=== PATIENT | male | born 1990 | race Caucasian/White ===

== ENCOUNTER 2022-04-19 05:52 | Emergency (ER) | payer OTHER, SELFPAY ==
[2022-04-19 05:59] VITALS: BP 136/82; PULSE 110; RESP 18; TEMP 37.7; O2SAT 100; BMI 20.2
--- NOTE | 2022-04-19 06:21 | ED_ITS ---
HPI - Psych General Chief Complaint: Psychiatric Symptoms Stated Complaint: crisis Time Seen by Provider: 04/19/22 06:16 Source: patient and EMS Mode of arrival: EMS Limitations: other (Psychotic, paranoia) History of Present Illness HPI Narrative: Patient comes to the emergency room via EMS. Patient was discharged approximately 2 weeks ago from an inpatient facility in [place]. According to the patient's mother, patient has history of bipolar disorder. The mother told EMS that the patient is very paranoid, patient thinks that his apartment is going to get bombarded. Patient has been pulling wires from the apartment, concerned about being spyed. Also, patient is afraid of the kitchen and won't go in there. Patient states that he is here for anxiety, patient giving any significant history. Patient came on a Section 12 Related Data Home Medications Medication Instructions Recorded Confirmed quetiapine 100 mg tablet 100 mg PO BEDTIME 04/19/22 04/19/22 quetiapine 25 mg tablet 12.5 mg PO BID 04/19/22 04/19/22 quetiapine 25 mg tablet 25 mg PO BID 04/19/22 04/19/22 Allergies Allergy/AdvReac Type Severity Reaction Status Date / Time gluten Allergy Intermediate Diarrhea Verified 04/19/22 06:07 lactose Allergy Intermediate Diarrhea Verified 04/19/22 06:08 ciprofloxacin AdvReac Intermediate Rash Verified 04/19/22 06:06 Sulfa (Sulfonamide AdvReac Intermediate Shortness Verified 04/19/22 06:07 Antibiotics) of Breath Review of Systems Review of Systems: Yes Unobtainable due to mental condition PMFSH Past Medical History Medical History (Updated 04/19/22 @ 06:25 by Nimisha Lilly MD) Bipolar disorder Physical Exam Vital Signs: Vital Signs: Last Vital Signs Temp 100 F 04/19/22 05:59 Pulse 110 H 04/19/22 05:59 Resp 18 04/19/22 05:59 BP 136/82 04/19/22 05:59 Pulse Ox 100 04/19/22 05:59 O2 Del Method 04/19/22 05:59 BMI result Body Mass Index 20.2 Const: Other: Appearance: Alert. Oriented X3. Agitated Eyes: Pupils equal, myadriasis bilateraly, round and reactive to light. ENT: Pharynx normal. Neck: Normal inspection. Neck supple. No lymph nodes noted. No crepitus CVS: Normal heart rate and rhythm. Pulses normal. Normal S1 and S2 Respiratory: No respiratory distress. Breath sounds normal. No Wheezing. No rales Abdomen: Soft and nontender. No rigidity. No distention. Skin: Skin warm and dry. Normal skin color. Normal skin turgor. Extremities: No lower extremity edema. No Lacerations. No Rash Neuro: Oriented X 3. No motor deficit. No sensory deficit. Moving all extremities. No slurred speech. CN 2 through 12 grossly intact Psych: Anxious, at times a bit explosive but easily redirectable Course Course Course Narrative: Patient is unable to give much history. Patient is a bit explosive. 2 mg of Ativan p.o. were given. Patient will very likely need to be treated in an inpatient setting. [facility] network consult pending All of his labs are pending. Physician observation started at 06:25 Sign-out given to Dr. Carrero Discharge Plan Discharge Clinical Impression: Paranoid behavior Patient Disposition: Still a Patient Prescriptions: No Action quetiapine 25 mg Tablet 12.5 mg PO BID quetiapine 100 mg Tablet 100 mg PO BEDTIME quetiapine 25 mg Tablet 25 mg PO BID
[2022-04-19] MEDS: LORazepam 1 MG TABLET 2 MG PO (06:37)
[2022-04-19 06:53] LABS: COVID-19 Test Negative (Negative)
[2022-04-19 06:56] LABS: Amphetamine Screen Urine Not Detected (Not Detect); Barbiturates, Urine Not Detected (Not Detect); Benzodiazepines Screen Urine Not Detected (Not Detect); Cannabinoid Screen Urine Not Detected (Not Detect); Cocaine Screen Urine Not Detected (Not Detect); Fentanyl, urine Not Detected (Not Detect); Opiate Screen Urine Not Detected (Not Detect); Phencyclidine Screen Urine Not Detected (Not Detect)
--- NOTE | 2022-04-19 09:26 | PC.NURSE ---
pt refusing to have his labs drawn
[2022-04-19 10:46] VITALS: BP 110/81; PULSE 79; RESP 18; TEMP 36.5; O2SAT 100
--- NOTE | 2022-04-19 10:50 | PC.NURSE ---
pt reports that he made a mistake in what he stated last night, that he just got spooked . pt reports he no longer needs to be here, would like to go home, that his mom is an DEVICE TEST ENGINEER and can give him the medications that he needs . pt spoke with CARE team this morning, will be speaking with Libia DEVICE TEST ENGINEER shortly. pt remains a section 12, will continue to monitor.
--- NOTE | 2022-04-19 11:20 | PC.NURSE ---
pt increasingly agitated, paranoid evert Reza HIM DIRECTOR and CARE team Niki discussing his plan of care. pt reports thats not fair they shoudl be having the conversation out here in front of me because if they are saying things that are not going in my favor I'm going to be pissed and the whole thing should be thrown out . pt knocking on the care team door, redirected with success
--- NOTE | 2022-04-19 12:25 | PC.NURSE ---
pt illogical and paranoid, staring out the windows, previously reporting that there are people out there watching him, requiring constant redirection. pt with multiple demands to have a print out of his section 12, laws on section 12, laws regarding transfers to other hospitals. pt continually making phone calls to his mother, berating her for speaking to the PODOPEDIATRICIAN about his care because he didn't agree with what she said . t/w removed the phone from pts possession after he told his mother he was going to locker her up and throw away the gunn and see how she likes it . pt also continually swearing at his mother loudly in the community room.
--- NOTE | 2022-04-19 13:31 | PC.NURSE ---
Pt mother called to ask if she could visit. Pt states he would like to see his mother. This RN educated pt and reinforced that proper behavior is needed during his mother's visit and that he can not become verbally assaultive towards his mother, which he had previously done on the phone earlier today. Pt able to teachback education and agrees to behave appropriately when mother visits
--- NOTE | 2022-04-19 15:34 | P.CNPS_ITS ---
History of Present Illness Date of Service: 04/19/2022 Chief Complaint: crisis Reason for Consult: paranoia Requesting physician: Libra Wolff Discussed with referring provider: Yes Sources of Information: patient interviewed, chart reviewed and crisis/core team assessment reviewed Additional Sources of Information: This proposal lead writer spoke with mother Katrina. HPI Narrative: Mr. Adkins is a 32 year-old male with hx of Bipolar, maybe more schizoaffective disorder as pt currently presents mostly with paranoid, persecutory delusions without evident kusum. Utox is negative. Pt recently was discharged from psych unit from [place]- after 2 week stay due to symptoms of paranoia, not sleeping and having been found holding knifes to defend himself. Mother went down to [place] to help pt relocate to [place]. Mother reports this past Monday pt very suspicious and paranoid to get in the airplane. Pt finally agreed to come, since then per mother, pt has not been sleeping thinking he was being followed, closing shades during the day and blocking door with bookcase. Pt afraid to get out of the house, hesitant about picking up medications- seroquel from the pharmacy and reluctant to take it. While in the ED, pt called mother and told her that he was working for the [employer] and had not told her this information prior. Utox is neg. When this proposal lead writer met with pt, pt states I'm just anxious. He denies paranoid or persecutory delusions stating when I say someone is after me is not a delusion, is because that is the case. Pt reports he is not pro medications but would agree to take seroquel if discharge back home- which is not the case per his mother. Pt denies SI/HI. Pt anxious and restless asking to be discharge stating he has many things to do like finding a new job (hoping to be able to work at [employer] as he did in [place]). This proposal lead writer met later with pt and his mother by bedside. Pt agrees to follow up with OP psychiatric provider and agrees to take risperidone and ativan. Pt understands that if at any point his safety or other people safety is comprimised due to his psychiatric illness, either 911 or crisis will be called again. Mother agrees with this plan. No imminent safety at this point, risk of harm to self reduced by fact that he lives with mom, has agreed at least to try risperidone. Past Psychiatric History: Inpatient: [place] 2 admission in past 5 weeks due to increase paranoia OP: none suicide attempt: 10 years ago OD on meds, was on ventilator. Past medication trials: seroquel, haldol while in hospital [facility] Medical History (Updated 04/19/22 @ 16:51 by Libia Martinez) Bipolar disorder Diagnostics Vital Signs (24Hr): Vital Signs - 24 hr 04/19/22 05:59 04/19/22 10:46 Temperature 100 F 97.7 F Pulse Rate 110 H 79 Respiratory Rate 18 18 Blood Pressure 136/82 110/81 Pulse Oximetry 100 100 Oxygen Delivery Method Room Air Room Air BMI result Body Mass Index 20.2 Labs Results: 04/19/22 15:47 04/19/22 15:47 Labs: Laboratory Results - last 48 hr 04/19/22 04/19/22 06:22 06:35 Urine Opiates Screen Not Detected Urine Fentanyl Screen Not Detected Ur Barbiturates Screen Not Detected Ur Phencyclidine Scrn Not Detected Ur Amphetamines Screen Not Detected U Benzodiazepines Scrn Not Detected Urine Cocaine Screen Not Detected U Marijuana (THC) Screen Not Detected COVID-19 (PRETTY) Negative COVID-19 Clin Com See Note Mental Status Exam Mental Status Exam Narrative: Appearance: casually groomed, fair hygiene in NAD Behavior:guarded, suspicious psychomotor:some agitation noted Speech:clear, hyperverbal at times, spontaneous Thought process:mostly linear Thought content:not forthcoming with extend of persecutory and paranoid delusions, wanting to be discharge home soon Mood: okay Affect: anxious, restless SI:none HI:none VH/AH:denies Delusions:persecutory delusions Insight/judgment:not insight into psychiatric symptoms but willing to take medications Memory/cog: alert, oriented x 3. poor attention due to delusions Medications Allergies Allergies Allergy/AdvReac Type Severity Reaction Status Date / Time gluten Allergy Intermediate Diarrhea Verified 04/19/22 06:07 lactose Allergy Intermediate Diarrhea Verified 04/19/22 06:08 ciprofloxacin AdvReac Intermediate Rash Verified 04/19/22 06:06 Sulfa (Sulfonamide AdvReac Intermediate Shortness Verified 04/19/22 06:07 Antibiotics) of Breath Assessment & Plan Assessment & Plan (1) Bipolar disorder with psychotic features: Status: Acute Code(s): F31.9 - Bipolar disorder, unspecified Plan Mr. Adkins is a 32 year-old male with hx of Bipolar, although it may be more schizoaffective bipolar type who [place] [facility] 12 due to increase paranoia, thinking he is being followed, thinks he works for [employer]. In the ED, pt somewhat hypervigilant and suspicious, denying paranoia stating he was just anxious. He has agreed to take risperidone 2mg po qhs and ativan 1mg po BID prn anxiety. Pt understands that if at any point his safety or other people safety is compromised due to exacerbation of his psychiatric symptoms, either 911 or crisis will be called again. Mother agrees with this plan. No imminent safety at this point, risk of harm to self or others reduced by fact that he lives with mom, has agreed at least to try risperidone and follow up with outpatient psychiatric provider. PLAN 1. discharge back home with mom, follow up with referrals for OP psychiatry. Sent rx for risperidone 2mg po qhs. Ativan 1mg po BID prn anxiety. 2. MOther and pt agreed to call crisis or 911 if pt's psychiatric symptoms worsen or his safety compromise due to his psychiatric symptoms. I spent minutes with the patient and/or on the patient floor today, greater than?50% of which was spent counseling/coordinating care.
[2022-04-19 15:56] LABS: MANUAL DIFF FLAG NO
[2022-04-19 15:57] LABS: Basophils Percent Auto 0.3 % (0-2); Eosinophils Percent Auto 0.6 % (0-4); Hematocrit 44.4 % (42.0-52.0); Hemoglobin 15.6 g/dl (14.0-18.0); Imm Gran Abs Auto 0.02 X10*3/uL (0.00-0.03); Imm Gran Pct Auto 0.3 % (0.0-0.4); Lymphocytes Absolute Auto 2.1 X10*3/uL (1.2-4.9); Lymphocytes Percent Auto 32.6 % (20-40); Mean Corpuscular HGB Conc 35.1 g/dl (31.0-36.0); Mean Corpuscular Hemoglobin 30.7 pg (27.0-33.0); Mean Corpuscular Volume 87.4 fL (80.0-98.0); Mean Platelet Volume 10.2 fL (9.4-12.4); Monocytes Absolute Auto 0.4 X10*3/uL (0.1-1.2); Monocytes Percent Auto 6.6 % (2-11); Neutrophils Absolute Auto 3.8 x10*3/uL (2.0-8.3); Neutrophils Percent Auto 59.6 % (45-73); Platelet Count 264 X10*3/uL (160-400); Red Blood Count 5.08 X10*6/uL (4.60-5.80); Red Cell Distribution Width 11.6 % (11.0-16.0); White Blood Count 6.4 X10*3/uL (4.8-10.8)
[2022-04-19 16:14] LABS: Anion Gap 12 (12-20); Blood Urea Nitrogen 10 mg/dL (9-16); Calcium 9.8 mg/dL (8.4-10.2); Carbon Dioxide 26 mmol/L (22-29); Chloride 106 mmol/L (96-108); Creatinine Clr Calc Pharmacy 93.8; Estimated Glomerular Filt Rate > 60; Glucose Random 96 mg/dL (60-115); Potassium 4.4 mmol/L (3.3-5.1); Sodium 140 mmol/L (135-145)
--- NOTE | 2022-04-19 17:08 | MHC.CARE ---
Plan for admission changed, patient willing to try Risperdal, mother present and in agreement. Call to Omar to cancel the authorization spoke to [place] Núñez ref # [id number], said that the Bee Worker Sharon will call within the next 24hrs.
== END 2022-04-19 17:53 | disposition home or self-care (01) ==
PROVIDERS: Emergency Provider Emergency Medicine
DX: F23 Brief psychotic disorder (principal); F41.1 Generalized anxiety disorder; F43.0 Acute stress reaction; Z20.822 Contact with and (suspected) exposure to COVID-19; Z79.899 Other long term (current) drug therapy
CPT/HCPCS: 36415; 80048; 80307; 85025; 87635; 99284

== ENCOUNTER 2022-09-04 14:55 | Emergency (ER) | payer OTHER, SELFPAY ==
[2022-09-04 15:36] VITALS: BP 119/80; PULSE 70; RESP 20; TEMP 36.5; O2SAT 99; BMI 18.0
--- NOTE | 2022-09-04 15:38 | ED.GENADULT ---
HPI - General Adult General Chief complaint: Psychiatric Symptoms Stated complaint: Crisis Time Seen by Provider: 09/04/22 15:34 Source: patient Mode of arrival: ambulatory Limitations: no limitations History of Present Illness HPI narrative: Patient is a 32 year old assigned male at with a history of bipolar disorder presenting to the emergency department today in an acute manic episode. Patient's mother states that the patient has had episodes similar to this before where he stops taking his medications and has a psychotic episode. Patient's mother states that the patient attempted to get in his car and drive across state lines with no real motivations. Patient denies any dizziness, lightheadedness, abdominal pain, nausea, vomiting, fever, chills, blurry vision, double vision, loss of vision, chest pain, difficulty breathing, shortness of breath, back pain, night sweats, pain with urination, increased urinary frequency, increased urinary urgency, blood in his urine or stool, syncope or a near syncopal episode, recent trauma or falls, bowel incontinence, bladder incontinence, bowel retention, bladder retention, or any other complaints at this time. Severity: moderate Relieving factors: none Exacerbating factors: none Associated symptoms: denies other symptoms Treatments prior to arrival: none Related Data Previous Rx's Medication Instructions Recorded lorazepam 1 mg tablet (Ativan) 1 mg PO BID PRN anxiety or sleep 04/19/22 #30 tabs risperidone 2 mg tablet 2 mg PO BEDTIME #30 tabs 04/19/22 Allergies Allergy/AdvReac Type Severity Reaction Status Date / Time gluten Allergy Intermediate Diarrhea Verified 04/19/22 06:07 lactose Allergy Intermediate Diarrhea Verified 04/19/22 06:08 ciprofloxacin AdvReac Intermediate Rash Verified 04/19/22 06:06 Sulfa (Sulfonamide AdvReac Intermediate Shortness Verified 04/19/22 06:07 Antibiotics) of Breath Review of Systems Constitutional: Constitutional: Reports no additional constitutional complaints, Denies chills, Denies fever(s) and Denies night sweats Eyes: Eyes: Reports no additional eye complaints, Denies blurry vision, Denies change in vision, Denies diplopia, Denies eye discharge, Denies loss of vision and Denies eye pain ENT: Denies dizziness Cardiovascular: Cardiovascular: Reports no additional cardiovascular complaints, Denies chest pain, Denies lightheadedness, Denies Loss of Consciousness and Denies dyspnea Respiratory: Respiratory: Reports no additional respiratory complaints and Denies dyspnea Gastrointestinal: Gastrointestinal: Reports no additional gastrointestinal complaints, Denies abdominal pain, Denies melena, Denies hematochezia, Denies change in bowel habits and Denies change in stool character Genitourinary: Genitourinary: Reports no additional male genitourinary complaints, Denies hematuria, Denies oliguria, Denies difficulty urinating, Denies dysuria, Denies urinary frequency, Denies urinary hesitancy, Denies urinary incontinence and Denies urinary urgency Musculoskeletal: Musculoskeletal: Reports no additional musculoskeletal complaints, Denies numbness and Denies tingling Neurologic: Reports behavioral changes, Denies dizziness, Denies loss of vision, Denies numbness and Denies tingling Psychiatric: Psychiatric: Reports behavioral changes Endocrine: Endocrine: Reports no additional endocrine complaints Hematologic/Lymphatic: Hematologic/Lymphatic: Reports no additional hematologic/lymphatic complaints Allergic/Immunologic: Allergic/Immunologic: Reports no additional allergic/immunologic complaints PMFSH Past Medical History Attestation statement: The following information was validated with the patient. (all information was validated with the patient's mother) Source: old records reviewed and obtained from family (patient's mother) Medical History Bipolar disorder Social History Social History Smoked in Last 30 Days: No Use of substances other than those prescribed or required for medical reasons: Yes Substance Use Type: Marijuana Advance Directives: No Advance Directives Information Provided: Yes Physical Exam ED Vital Signs: Vital Signs - 24 hr 09/04/22 15:36 Temperature 97.7 F Pulse Rate 70 Respiratory Rate 20 Blood Pressure 119/80 Pulse Oximetry 99 Oxygen Delivery Method Room Air BMI result Body Mass Index 18.0 Const General: cooperative, no acute distress, alert and awake Nutritional Appearance: well nourished Orientation/consciousness: patient oriented x3 Limitations: no limitations HENMT Head: Yes normal to inspection and Yes atraumatic Ears: hearing grossly normal bilaterally and external ears normal General nose exam: Normal external nose present, no nasal discharge noted and no epistaxis Face and sinus: Yes normal facial exam, No abrasion and No laceration Mouth: Normal oral and palatal mucosa present, no drooling and no muffled voice Eyes General: appearance normal, both eyes and all related structures Periorbital: periorbital findings normal Eyelids: Yes eyelids normal Conjunctivae: conjunctivae normal Pupils: Equal, round and reactive pupils present EOM: EOMs intact bilaterally Neck Neck: Yes normal visual inspection, Yes full ROM and Yes no lymphadenopathy Chest Chest palpation & inspection: normal inspection of the chest Resp Effort & Inspection: normal respiratory effort and able to speak in complete sentences Auscultation: clear to auscultation bilaterally Cardio Rate: regular rate Rhythm: regular rhythm GI Inspection: Yes normal to inspection Neuro General: patient oriented x3 and moves all extremities Cranial nerves: Yes Equal, round and reactive pupils present Cognition (Neuro): normal cognition Motor exam (neuro): 5/5 motor strength present throughout Sensory Exam: Normal double simultaneous stimulation for sensation Coordination: [id number] test normal Extrem General: Yes normal to inspection, Yes full ROM and Yes capillary refill normal Psych Appearance: grossly normal Speech and movement: Pressured speech present Affect: Labile affect present Attitude: cooperative Thought process: Confabulating thought process present Thought content: delusions Insight: Limited insight present (Psych) Judgement: Limited judgement present (Psych) Medical Decision Making [facility] Narrative Medical decision making narrative: Patient is a 32 year old assigned male at with a history of bipolar disorder presenting to the emergency department today in an acute manic episode. Patient's physical exam showed an obviously manic individual. Patient's blood work was unremarkable. CARE team evaluated the patient who recommended the patient be discharged home with plans for partial hospitalization. I explained my physical exam findings as well as all test results to the patient and the patient's mother. I answered all questions asked by the patient and the patient's mother. I stressed the importance of the patient taking his medication as prescribed. I stressed the importance of the patient following up with his primary care provider. I stressed the importance of the patient returning to the emergency department immediately if his symptoms were to worsen or if he were to develop any dizziness, shortness of breath, difficulty breathing, chest pain, blurry vision, loss of vision, nausea, vomiting, abdominal pain, fever, chills, back pain, or any other complaints. Patient and the patient's mother verbalized agreement and understanding with this treatment plan and discharge. Medical Records Medical records reviewed: Yes I reviewed the patient's medical records. Lab Data Lab results reviewed: Yes I reviewed the patient's lab results. Result diagrams: 09/04/22 16:14 09/04/22 16:14 Labs: Lab Results 09/04/22 09/04/22 09/04/22 Range/Units 16:14 16:14 16:14 WBC 7.0 (4.8-10.8) X10*3/uL RBC 5.31 (4.60-5.80) X10*6/uL Hgb 15.7 (14.0-18.0) g/dl Hct 44.1 (42.0-52.0) % MCV 83.1 (80.0-98.0) fL MCH 29.6 (27.0-33.0) pg MCHC 35.6 (31.0-36.0) g/dl RDW 12.5 (11.0-16.0) % Plt Count 232 (160-400) X10*3/uL MPV 10.0 (9.4-12.4) fL Immature Gran % (Auto) 0.3 (0.0-0.4) % Neut % (Auto) 67.5 (45-73) % Lymph % (Auto) 24.0 (20-40) % [place] % (Auto) 7.7 (2-11) % Eos % (Auto) 0.1 (0-4) % Baso % (Auto) 0.4 (0-2) % Lymph # (Auto) 1.7 (1.2-4.9) X10*3/uL [place] # (Auto) 0.5 (0.1-1.2) X10*3/uL Eos # (Auto) 0.0 (0.0-0.4) X10*3/uL Baso # (Auto) 0.0 (0.0-0.2) X10*3/uL Abs Immat Gran (auto) 0.02 (0.00-0.03) X10*3/uL Absolute Neuts (auto) 4.7 (2.0-8.3) x10*3/uL Absolute Nucleated RBC 0.000 (0.0-0.012) X10*3/uL Nucleated RBC % (auto) 0.0 (0.0-0.2) /100WBC Sodium 141 (135-145) mmol/L Potassium 4.6 (3.3-5.1) mmol/L Chloride 105 (96-108) mmol/L Carbon Dioxide 25 (22-29) mmol/L Anion Gap 16 (12-20) BUN 13 (9-16) mg/dL Creatinine 0.78 (0.5-1.4) mg/dL Estim Creat Clear Calc 89.8 Estimated GFR > 60 Random Glucose 96 (60-115) mg/dL Calcium 9.7 (8.4-10.2) mg/dL Total Bilirubin 0.9 (0.0-1.0) mg/dL AST 15 (5-37) U/L ALT 10 (0-40) U/L Alkaline Phosphatase 57 (39-117) U/L Total Protein 7.2 (6.5-8.0) g/dL Albumin 4.9 (3.5-5.0) g/dL Salicylates < 5.0 L (15-30) mg/dL Urine Opiates Screen Not Detected (Not Detect) Urine Fentanyl Screen Not Detected (Not Detect) Acetaminophen < 1 (<30) mcg/mL Ur Barbiturates Screen Not Detected (Not Detect) Ur Phencyclidine Scrn Not Detected (Not Detect) Ur Amphetamines Screen Not Detected (Not Detect) U Benzodiazepines Scrn Not Detected (Not Detect) Urine Cocaine Screen Not Detected (Not Detect) U Marijuana (THC) Screen Not Detected (Not Detect) Ethyl Alcohol < 10 mg/dL COVID-19 (PRETTY) (Negative) COVID-19 Clin Com 09/04/22 Range/Units 16:14 WBC (4.8-10.8) X10*3/uL RBC (4.60-5.80) X10*6/uL Hgb (14.0-18.0) g/dl Hct (42.0-52.0) % MCV (80.0-98.0) fL MCH (27.0-33.0) pg MCHC (31.0-36.0) g/dl RDW (11.0-16.0) % Plt Count (160-400) X10*3/uL MPV (9.4-12.4) fL Immature Gran % (Auto) (0.0-0.4) % Neut % (Auto) (45-73) % Lymph % (Auto) (20-40) % [place] % (Auto) (2-11) % Eos % (Auto) (0-4) % Baso % (Auto) (0-2) % Lymph # (Auto) (1.2-4.9) X10*3/uL [place] # (Auto) (0.1-1.2) X10*3/uL Eos # (Auto) (0.0-0.4) X10*3/uL Baso # (Auto) (0.0-0.2) X10*3/uL Abs Immat Gran (auto) (0.00-0.03) X10*3/uL Absolute Neuts (auto) (2.0-8.3) x10*3/uL Absolute Nucleated RBC (0.0-0.012) X10*3/uL Nucleated RBC % (auto) (0.0-0.2) /100WBC Sodium (135-145) mmol/L Potassium (3.3-5.1) mmol/L Chloride (96-108) mmol/L Carbon Dioxide (22-29) mmol/L Anion Gap (12-20) BUN (9-16) mg/dL Creatinine (0.5-1.4) mg/dL Estim Creat Clear Calc Estimated GFR Random Glucose (60-115) mg/dL Calcium (8.4-10.2) mg/dL Total Bilirubin (0.0-1.0) mg/dL AST (5-37) U/L ALT (0-40) U/L Alkaline Phosphatase (39-117) U/L Total Protein (6.5-8.0) g/dL Albumin (3.5-5.0) g/dL Salicylates (15-30) mg/dL Urine Opiates Screen (Not Detect) Urine Fentanyl Screen (Not Detect) Acetaminophen (<30) mcg/mL Ur Barbiturates Screen (Not Detect) Ur Phencyclidine Scrn (Not Detect) Ur Amphetamines Screen (Not Detect) U Benzodiazepines Scrn (Not Detect) Urine Cocaine Screen (Not Detect) U Marijuana (THC) Screen (Not Detect) Ethyl Alcohol mg/dL COVID-19 (PRETTY) Negative (Negative) COVID-19 Clin Com See Note Discharge Plan Discharge Clinical Impression: Bipolar disorder with psychotic features Patient Disposition: Home, Self-Care Instructions: Bipolar Disorder (ED) Additional Instructions: Follow up with your primary care provider. Return to the emergency department immediately if your symptoms worsen or if you develop any dizziness, shortness of breath, difficulty breathing, chest pain, blurry vision, loss of vision, nausea, vomiting, abdominal pain, fever, chills, back pain, or any other complaints. Prescriptions: No Action risperidone 2 mg tablet 2 mg PO BEDTIME Qty: 30 0RF lorazepam [Ativan] 1 mg tablet 1 mg PO BID PRN (Reason: anxiety or sleep) Qty: 30 0RF Print Language: Russian
[2022-09-04 16:20] LABS: MANUAL DIFF FLAG NO
[2022-09-04 16:22] LABS: Basophils Percent Auto 0.4 % (0-2); Eosinophils Percent Auto 0.1 % (0-4); Hematocrit 44.1 % (42.0-52.0); Hemoglobin 15.7 g/dl (14.0-18.0); Imm Gran Abs Auto 0.02 X10*3/uL (0.00-0.03); Imm Gran Pct Auto 0.3 % (0.0-0.4); Lymphocytes Absolute Auto 1.7 X10*3/uL (1.2-4.9); Mean Corpuscular HGB Conc 35.6 g/dl (31.0-36.0); Mean Corpuscular Hemoglobin 29.6 pg (27.0-33.0); Mean Corpuscular Volume 83.1 fL (80.0-98.0); Monocytes Absolute Auto 0.5 X10*3/uL (0.1-1.2); Monocytes Percent Auto 7.7 % (2-11); Neutrophils Absolute Auto 4.7 x10*3/uL (2.0-8.3); Neutrophils Percent Auto 67.5 % (45-73); Platelet Count 232 X10*3/uL (160-400); Red Blood Count 5.31 X10*6/uL (4.60-5.80); Red Cell Distribution Width 12.5 % (11.0-16.0)
[2022-09-04 16:36] LABS: Amphetamine Screen Urine Not Detected (Not Detect); Barbiturates, Urine Not Detected (Not Detect); Benzodiazepines Screen Urine Not Detected (Not Detect); Cannabinoid Screen Urine Not Detected (Not Detect); Cocaine Screen Urine Not Detected (Not Detect); Fentanyl, urine Not Detected (Not Detect); Opiate Screen Urine Not Detected (Not Detect); Phencyclidine Screen Urine Not Detected (Not Detect)
[2022-09-04 16:38] LABS: Acetaminophen LAB < 1 mcg/mL (<30); Alanine Aminotransferase 10 U/L (0-40); Albumin Level 4.9 g/dL (3.5-5.0); Alkaline Phosphatase 57 U/L (39-117); Anion Gap 16 (12-20); Aspartate Amino Transferase 15 U/L (5-37); Bilirubin Total 0.9 mg/dL (0.0-1.0); Blood Urea Nitrogen 13 mg/dL (9-16); Calcium 9.7 mg/dL (8.4-10.2); Carbon Dioxide 25 mmol/L (22-29); Chloride 105 mmol/L (96-108); Creatinine Clr Calc Pharmacy 89.8; Estimated Glomerular Filt Rate > 60; Ethanol < 10 mg/dL; Glucose Random 96 mg/dL (60-115); Potassium 4.6 mmol/L (3.3-5.1); Salicylate < 5.0 mg/dL (15-30); Sodium 141 mmol/L (135-145); Total Protein 7.2 g/dL (6.5-8.0)
[2022-09-04 16:44] LABS: COVID-19 Test Negative (Negative); IDNOW Serial# 9DB6401D
== END 2022-09-04 18:05 | disposition home or self-care (01) ==
PROVIDERS: Physician Assistant Medical; Emergency Provider Student in an Organized Health Care Education/Training Program
DX: F31.9 Bipolar disorder, unspecified (principal); Z79.899 Other long term (current) drug therapy; Z20.822 Contact with and (suspected) exposure to COVID-19
CPT/HCPCS: 80053; 80143; 80179; 80307; 82077; 85025; 87635; 99284